=== PATIENT | female | born 1950 | race Caucasian/White ===

== ENCOUNTER 2019-10-09 16:36 | Emergency (ER) | payer OTHER ==
[2019-10-09 17:15] VITALS: TEMP 98; BMI 33.0
--- NOTE | 2019-10-09 17:44 | PDOC ---
History of Present Illness - General Chief Complaint: Pain Stated Complaint: ABDOMINAL PAIN - History of Present Illness Initial Comments: The pt is a 69F w/ a history of HTN who presents for evaluation of 1 day of generalized body aches, fevers, nausea, NBNB vomiting x4, VALERA, and abdominal pain. She is unsure of what started first. She reports a global VALERA that is worse today than usual but was not sudden onset. It is throbbing and non- radiating. Also reports maxillary and frontal sinus pain/pressure. She endorses a non-productive cough. Her abdominal pain is epigastric, non-radiating, waxing/ waning, cramping, and is not exacerbated or alleviated by anything she can identify. She reports her vomiting is generally 15-20min s/p eating/drinking. Endorses fevers at home. She has not tried taking anything for her symptoms. Denies diarrhea, dysuria, hematuria, or changes in sensation. 10/09/19 18:58 Past History - Past Medical History Allergies/Adverse Reactions: Allergies Allergy/AdvReac Type Severity Reaction Status Date / Time No Known Allergies Allergy Verified 10/09/19 17:04 Home Medications: Ambulatory Orders Albuterol 0.083% Nebulizer Neeta [Ventolin 0.083%] 1 neb NEB Q4H PRN 10/09/19 Famotidine [Pepcid] 40 mg PO DAILY 10/09/19 Losartan Potassium 25 mg PO DAILY 10/09/19 Anemia: No Asthma: No Cancer: No Cardiac Disorders: (w/u in progress) CVA: No COPD: No CHF: No Dementia: No Diabetes: (borderline) GI Disorders: (GERD) Disorders: No HTN: Yes Hypercholesterolemia: No Liver Disease: No Seizures: No Thyroid Disease: No - Surgical History Abdominal Surgery: Yes (LEFT OVARIE REMOVED) Appendectomy: No Cardiac Surgery: No Cholecystectomy: No Lung Surgery: No Neurologic Surgery: No Orthopedic Surgery: No - Immunization History Immunization Up to Date: Yes - Psycho Social/Smoking Cessation Hx Smoking History: Never smoked Have you smoked in the past 12 months: No Hx Alcohol Use: No Drug/Substance Use Hx: No Substance Use Type: None Review of Systems - Review of Systems Able to Perform ROS?: Yes Comments:: GENERAL/CONSTITUTIONAL: +fevers HEAD, EYES, EARS, NOSE AND THROAT: No change in vision. No change in hearing. + sore throat CARDIOVASCULAR: No chest pain RESPIRATORY: +non-productive cough GASTROINTESTINAL: +N/V; Denies diarrhea GENITOURINARY: No dysuria, frequency, or change in urination MUSCULOSKELETAL: No joint or muscle swelling or pain. No neck or back pain SKIN: No rash NEUROLOGIC: No vertigo, loss of consciousness, or change in strength/sensation ENDOCRINE: No increased thirst. No abnormal weight change HEMATOLOGIC/LYMPHATIC: No anemia, easy bleeding, or history of blood clots ALLERGIC/IMMUNOLOGIC: No hives or skin allergy 10/09/19 17:44 Is the patient limited Telugu proficient: No *Physical Exam - Vital Signs Last Vital Signs Temp Pulse Resp BP Pulse Ox 98 F 100 H 18 140/81 99 10/09/19 16:55 10/09/19 16:55 10/09/19 16:55 10/09/19 16:55 10/09/19 16:55 - Physical Exam GENERAL: Awake, alert, and oriented to person/place/time, in no acute distress HEAD: No signs of trauma, normocephalic, atraumatic EYES: PERRLA, EOMI, sclera anicteric, conjunctiva clear ENT: Hearing grossly normal, nares patent, oropharynx clear without exudates. Moist mucosa LUNGS: No distress, speaks in full sentences, clear to auscultation bilaterally HEART: Tachycardic rate and regular rhythm, normal S1 and S2, no murmurs appreciated, peripheral pulses normal and equal bilaterally ABDOMEN: Soft, mild epigastric TTP w/o rebound or guarding, normoactive bowel sounds. EXTREMITIES: Normal inspection, Normal range of motion, no edema. No clubbing or cyanosis NEUROLOGICAL: Cranial nerves II through XII grossly intact. Normal speech, normal gait, no focal sensorimotor deficits SKIN: Warm, Dry 10/09/19 17:44 ED Treatment Course - LABORATORY CBC & Chemistry Diagram: 10/09/19 18:25 10/09/19 18:25 - RADIOLOGY Radiograph Interpretation: CT/SINUS CT W/O CONTRAST Impression: Minimal to mild bilateral ethmoid sinus mucosal thickening. Minimal to mild right maxillary sinus mucosal thickening. CT/HEAD CT WITHOUT CONTRAST Impression: No CT evidence of acute intracranial pathology. 10/09/19 21:34 Medical Decision Making - Medical Decision Making The pt is a 69F w/ a history of HTN who presents for evaluation of 1 day of generalized body aches, fevers, nausea, NBNB vomiting x4, VALERA, and abdominal pain. ED Course Labs sent ECG Ofirmev, IVF, Pepcid, Zofran for symptomatic relief ECG w/ NSR; HR 98; left axis deviation; left anterior fascicular block; no ZAHIDA; abn ecg 10/09/19 17:47 CT head to evaluate for bleed given severity of VALERA with associated vomiting CT A&P given persistent abd pain 10/09/19 19:29 CT A&P w/o acute pathology Pt denies nausea at this time Will PO challenge and reassess 10/09/19 22:32 Pt tolerating PO Plan for D/C w/ PCP f/u Discharge instructions and return precautions given Patient in agreement and verbalized understanding Dispo: Home 10/09/19 22:42 Discharge - Discharge Information Problems reviewed: Yes Clinical Impression/Diagnosis: Viral syndrome Abdominal pain Qualifiers: Abdominal location: unspecified location Qualified Code(s): R10.9 - Unspecified abdominal pain Headache Qualifiers: Headache type: unspecified Headache chronicity pattern: unspecified pattern Intractability: not intractable Qualified Code(s): R51 - Headache Condition: Stable - Admission No - Follow up/Referral Referrals: Estevan Shukla MD [Primary Care Provider] - [facility] [place] [place] [Provider Group] - Patient Discharge Instructions Patient Printed Discharge Instructions: DI for Viral Syndrome, Nausea and Vomiting-Adult Additional Instructions: You were seen in the Emergency Department for evaluation and your labs and imaging were unremarkable. Your symptoms are likely due to a virus. Bananas, Apples, Rice, and [place] (BRAT) diets may be beneficial to alleviating your symptoms. Avoid heavily flavored foods and spicy foods. Start with water/gatorade sips and advance as tolerated. If you try to incorporate solids and vomit, go back to liquids and try advancing slowly again over several hours. For fever/aches you may take Tylenol 650mg every 6 hours as needed. Return to the Emergency Department if you develop fevers/chills, chest pain, trouble breathing, inability to tolerate fluids, blood in your stool/vomit, worsening pain, worsening symptoms, or any new/concerning symptoms. - Post Discharge Activity
[2019-10-09] MEDS ORDERED: FAMOTIDINE 20 MG/50 ML IVPB 20 MG/50 ML MG IVPB ONE ×2 (18:03→18:23)
[2019-10-09] MEDS ORDERED: ONDANSETRON 4 MG/2 ML VIAL IVPUSH ONE (18:03)
[2019-10-09] MEDS ORDERED: SODIUM CHLORIDE 0.9% 500 ML INFUS.BAG IV ONE (18:03)
[2019-10-09] MEDS ORDERED: ACETAMINOPHEN 1000 MG/100 ML VIAL (NON FORMULARY) IVPB ONE (18:03)
[2019-10-09] MEDS ORDERED: ONDANSETRON 4 MG/2 ML VIAL ONE (18:23)
[2019-10-09] MEDS ORDERED: ACETAMINOPHEN INJECTION 100 ML IVPB ONE (18:23)
--- NOTE | 2019-10-09 18:46 | PDOC ---
Documentation entered by Kecia Samano SCRIBE, acting as scribe for Juvencio Roa MD. Juvencio Roa MD: This documentation has been prepared by the Jazmyne spencer Xhesika, SCRIBE, under my direction and personally reviewed by me in its entirety. I confirm that the documentation accurately reflects all work, treatment, procedures, and medical decision making performed by me. Attending Attestation - Resident Resident Name: Richie Romero - ED Attending Attestation I have performed the following: I have examined & evaluated the patient, The case was reviewed & discussed with the resident, I agree w/resident's findings & plan, Exceptions are as noted - HPI HPI: 10/09/19 18:31 The patient is a 69 y/o female with a PMH of Gerd, DM, and HTN who presents to the ED with 1 day of myalgia, headache, ear pain and intermittent fevers. The patient states she has been endorsing multiple episodes of vomiting throughout the day after every meal or drink. The patient denies chest pain, shortness of breath, and dizziness. Denies cough , nausea, and constipation. Denies dysuria, frequency, urgency and hematuria. Allergy: NKDA - Physicial Exam PE: 10/09/19 18:33 Vitals: Triage Vital signs reviewed General Appearance: no acute distress, well nourished well developed, Neck: Supple;No Nuchal rigidity Chest Wall: Nontender Cardiac: Regular rate and rhythm, no murmurs, no rubs, no gallops, Lungs: Clear to auscultation bilateral, good air movement bilaterally, Abdomen: +Epigastric discomfort. Soft, nondistended, normal bowel sounds Extremities: Full range of motion to all extremities, no cyanosis, clubbing, or edema Skin: Warm and dry, no rashes or lesions, no petechiae Psych: normal mood, normal affect - Medical Decision Making 10/09/19 19:14 History examination with influenza-like illness Patient with mild epigastric pain fever chills body aches nausea vomiting We will check labs hydrate observe and reassess Dr. Lares to follow up labs and reevaluate patient
[2019-10-09 19:02] LABS: BASO % 0.2 % (0-2.0); EOS % 0.1 % (0-4.5); HEMATOCRIT 45.4 % (32.4-45.2); HEMOGLOBIN 15.2 GM/dL (10.7-15.3); LYMPH % 10.2 % (8-40); MCH 29.1 pg (25.7-33.7); MCHC 33.4 g/dl (32.0-36.0); MEAN CELL VOLUME 87.1 fl (80-96); MEAN PLT VOLUME 8.9 fl (7.5-11.1); MONO % 4.7 % (3.8-10.2); NEUT % 84.8 % (42.8-82.8); PLATELET COUNT 225 K/MM3 (134-434); RBC 5.22 M/mm3 (3.60-5.2); RDW 14.1 % (11.6-15.6); WHITE BLOOD COUNT 8.8 K/mm3 (4.0-10.0)
[2019-10-09 19:18] LABS: ALBUMIN 3.9 g/dl (3.4-5.0); ALK PHOS 89 U/L (45-117); ANION GAP 8 MMOL/L (8-16); BLOOD UREA NITROGEN 12.4 mg/dL (7-18); CALCIUM 8.8 mg/dL (8.5-10.1); CHLORIDE 104 mmol/L (98-107); CO2 27 mmol/L (21-32); CREATININE 0.7 mg/dL (0.55-1.3); GLUCOSE,RANDOM 107 mg/dL (74-106); POTASSIUM 3.7 mmol/L (3.5-5.1); SGOT/AST 20 U/L (15-37); SGPT/ALT 39 U/L (13-61); SODIUM 139 mmol/L (136-145); TOT PROT 7.3 g/dl (6.4-8.2)
[2019-10-09 23:09] VITALS: BP 135/76; PULSE 88
--- NOTE | 2019-10-10 10:43 | EKG ---
Test Reason : Blood Pressure : / mmHG Vent. Rate : 098 BPM Atrial Rate : 098 BPM P-R Int : 148 ms QRS Dur : 064 ms QT Int : 358 ms P-R-T Axes : 058 -46 044 degrees QTc Int : 457 ms NORMAL SINUS RHYTHM POSSIBLE LEFT ATRIAL ENLARGEMENT LEFT ANTERIOR FASCICULAR BLOCK INFERIOR INFARCT , AGE UNDETERMINED CANNOT RULE OUT ANTERIOR INFARCT , AGE UNDETERMINED ABNORMAL ECG NO PREVIOUS ECGS AVAILABLE Confirmed by Vipul Caldwell MD ([id number]) on 10/10/2019 10:43:14 AM Referred By: Confirmed By:Vipul Caldwell MD
== END 2019-10-09 23:10 | disposition home or self-care (01) ==
LOC: JER 16:36
PROC: 3E033GC Introduction of Other Therapeutic Substance into Peripheral Vein, Percutaneous Approach (ICD-10-PCS; principal; 2019-10-09)
PROC: 3E033NZ Introduction of Analgesics, Hypnotics, Sedatives into Peripheral Vein, Percutaneous Approach (ICD-10-PCS; 2019-10-09)
PROC: 3E033GC Introduction of Other Therapeutic Substance into Peripheral Vein, Percutaneous Approach (ICD-10-PCS; 2019-10-09)
DX: B34.9 Viral infection, unspecified (principal); I10 Essential (primary) hypertension
CPT/HCPCS: 36415; 70450-TC; 70486-TC; 71045-TC-FY; 74177-TC; 80053; 84484; 85025; 87804; 93005; 93010; 96365; 96375; 99285-25; J0131; Q9967

== ENCOUNTER 2019-10-23 10:00 | Day surgery (SDC) | payer OTHER ==
[2019-10-22 17:04] VITALS: BMI 32.8
[2019-10-23 12:00] VITALS: TEMP 97.9
[2019-10-23 12:29] VITALS: BP 156/85; PULSE 68
--- NOTE | 2019-10-24 17:00 | PATH ---
Surgical Pathology Report Patient Name: [facility]RIAN [facility]. Rec. #: [id number] /Age/Gender: 1950 (Age: 69) / F Account: [id number] Location: U-ENDOSCOPY Taken: 10/23/2019 Received: 10/23/2019 Reported: 10/24/2019 Physicians: Timbo Matthews D.O. Specimen(s) Received A: ANTRAL ERYTHEMA B: GASTRIC POLYPS C: ANGULARIS AND BODY Clinical History Abnormal CT scan Postoperative diagnosis: Gastric polyps, gastritis Final Diagnosis A. STOMACH, ANTRAL ERYTHEMA, BIOPSY: GASTRIC ANTRAL MUCOSA WITH MILD CHRONIC ACTIVE GASTRITIS AND VASCULAR CONGESTION. IMMUNOHISTOCHEMICAL STAIN FOR H. PYLORI IS NEGATIVE. B. GASTRIC POLYPS, BIOPSY: FUNDIC GLAND POLYP(S). IMMUNOHISTOCHEMICAL STAIN FOR H. PYLORI IS NEGATIVE. C. STOMACH, ANGULARIS AND BODY, BIOPSY: GASTRIC BODY MUCOSA WITH MILD CHRONIC GASTRITIS. IMMUNOHISTOCHEMICAL STAIN FOR H. PYLORI IS NEGATIVE. Positive and negative controls (internal if applicable) show appropriate results. Electronically Signed Deneen Eduardo M.D. Gross Description A. Received in formalin, labeled "biopsy antral erythema" are 6 cook, irregular portions of soft tissue ranging from 0.1-0.5 cm. in greatest dimension. The specimens are submitted in toto in one cassette. B. Received in formalin, labeled "biopsy gastric polyps" are 8 cook, irregular portions of soft tissue ranging from 0.2-0.4 cm. in greatest dimension. The specimens are submitted in toto in one cassette. C. Received in formalin, labeled "biopsy angularis and body" is a cook, irregular portion of soft tissue measuring 0.3 cm. in greatest dimension. The specimen is submitted in toto in one cassette. DL/10/23/2019 saudi/10/23/2019
== END 2019-10-23 12:45 | disposition home or self-care (01) ==
LOC: JASU-ENDO 10:00
PROVIDERS: ATTEND Internal Medicine Gastroenterology
PROC: 0DB68ZX Excision of Stomach, Via Natural or Artificial Opening Endoscopic, Diagnostic (ICD-10-PCS; principal; 2019-10-23 11:00)
DX: K31.7 Polyp of stomach and duodenum (principal); K29.50 Unspecified chronic gastritis without bleeding
CPT/HCPCS: 88305-TC; 88342-TC

== ENCOUNTER 2021-11-24 04:33 | Day surgery (SDC) | payer OTHER ==
[2021-11-20 16:16] VITALS: BMI 32.1
[~2021-11-24 04:33] MED LIST: BUPIVACAINE HCL/PF 0.5% (5MG/ML) 10 ML VIAL IJ ONE; IOHEXOL 180 MG/1 ML ML IJ ONE
[2021-11-24] MEDS ORDERED: DEXAMETHASONE SOD PHOSPHATE 10 MG/1 ML VIAL ONE (11:28)
[2021-11-24] MEDS ORDERED: BUPIVACAINE HCL/PF 0.5% (5MG/ML) 10 ML VIAL ONE (11:28)
[2021-11-24] MEDS ORDERED: BUPIVACAINE HCL/PF 0.75% 10 ML VIAL ONE (11:28)
[2021-11-24] MEDS ORDERED: IOHEXOL 180 MG/1 ML ML IJ ONE (12:41)
[2021-11-24] MEDS ORDERED: BUPIVACAINE HCL/PF 0.5% (5MG/ML) 10 ML VIAL IJ ONE (13:00)
[2021-11-24 13:33] VITALS: BP 141/90; PULSE 64; TEMP 98
== END 2021-11-24 13:50 | disposition home or self-care (01) ==
LOC: JASU-SURG 04:33
PROVIDERS: ATTEND Pain Medicine Pain Medicine
PROC: 3E0T33Z Introduction of Anti-inflammatory into Peripheral Nerves and Plexi, Percutaneous Approach (ICD-10-PCS; 2021-11-24)
PROC: 3E0T3BZ Introduction of Anesthetic Agent into Peripheral Nerves and Plexi, Percutaneous Approach (ICD-10-PCS; principal; 2021-11-24 11:30)
DX: M47.812 Spondylosis without myelopathy or radiculopathy, cervical region (principal)
CPT/HCPCS: 76000-TC-FY; J1100

== ENCOUNTER 2021-12-22 04:29 | Day surgery (SDC) | payer OTHER ==
[2021-12-21 11:15] VITALS: BMI 32.1
[2021-12-22] MEDS ORDERED: LIDOCAINE HCL/PF 1% SDV 5ML VIAL ONE (07:09)
[2021-12-22] MEDS ORDERED: BUPIVACAINE HCL/PF 0.5% (5MG/ML) 10 ML VIAL ONE (07:09)
[2021-12-22] MEDS ORDERED: BUPIVACAINE HCL/PF 0.5% (5MG/ML) 10 ML VIAL IJ ONE (09:40)
[2021-12-22] MEDS ORDERED: IOHEXOL 180 MG/1 ML ML IJ ONE (09:40)
[2021-12-22 12:01] VITALS: BP 145/78; PULSE 60; TEMP 97.8
== END 2021-12-22 10:17 | disposition home or self-care (01) ==
LOC: JASU-SURG 04:29
PROVIDERS: ATTEND Pain Medicine Pain Medicine
PROC: BR14YZZ Fluoroscopy of Cervical Facet Joint(s) using Other Contrast (ICD-10-PCS; 2021-12-22)
PROC: 3E0T3BZ Introduction of Anesthetic Agent into Peripheral Nerves and Plexi, Percutaneous Approach (ICD-10-PCS; principal; 2021-12-22 09:30)
DX: M47.812 Spondylosis without myelopathy or radiculopathy, cervical region (principal); I10 Essential (primary) hypertension
CPT/HCPCS: 76000-TC-FY

== ENCOUNTER 2022-01-26 04:37 | Day surgery (SDC) | payer OTHER ==
[2022-01-21 16:28] VITALS: BMI 32.1
[2022-01-26] MEDS ORDERED: BUPIVACAINE HCL/PF 0.25% (2.5MG/ML) 10 ML VIAL ONE (07:14)
[2022-01-26] MEDS ORDERED: LIDOCAINE HCL/PF 1% SDV 5ML VIAL ONE (07:15)
[2022-01-26] MEDS ORDERED: BUPIVACAINE HCL/PF 0.75% 10 ML VIAL ONE (07:15)
[2022-01-26 08:40] VITALS: TEMP 97.5
[2022-01-26] MEDS ORDERED: LIDOCAINE HCL/PF 2% SDV 5ML VIAL ONE (10:38)
[2022-01-26] MEDS ORDERED: DEXAMETHASONE SOD PHOSPHATE 10 MG/1 ML VIAL IM ONE (10:39)
[2022-01-26] MEDS ORDERED: LIDOCAINE 1% P/F 10 MG/ML VIAL INF ONE (10:40)
[2022-01-26] MEDS ORDERED: BUPIVACAINE HCL/PF 0.25% (2.5MG/ML) 10 ML VIAL IJ ONE (10:41)
[2022-01-26] MEDS ORDERED: LIDOCAINE HCL/PF 2% SDV 5ML VIAL INF ONE (10:42)
[2022-01-26 11:31] VITALS: BP 143/69; PULSE 68
== END 2022-01-26 11:35 | disposition home or self-care (01) ==
LOC: JASU-SURG 04:37
PROVIDERS: ATTEND Pain Medicine Pain Medicine
PROC: 3E0T3TZ Introduction of Destructive Agent into Peripheral Nerves and Plexi, Percutaneous Approach (ICD-10-PCS; principal; 2022-01-26 11:00)
PROC: BR14YZZ Fluoroscopy of Cervical Facet Joint(s) using Other Contrast (ICD-10-PCS; 2022-01-26 11:00)
DX: M47.812 Spondylosis without myelopathy or radiculopathy, cervical region (principal); I10 Essential (primary) hypertension
CPT/HCPCS: 76000-TC-FY; J1100

== ENCOUNTER 2022-03-02 04:43 | Day surgery (SDC) | payer OTHER ==
[2022-02-24 17:36] VITALS: BMI 32.1
[2022-03-02] MEDS ORDERED: LIDOCAINE HCL/PF 1% SDV 5ML VIAL ONE (07:07)
[2022-03-02] MEDS ORDERED: BUPIVACAINE HCL/PF 0.75% 10 ML VIAL ONE (07:07)
[2022-03-02] MEDS ORDERED: LIDOCAINE HCL/PF 2% SDV 5ML VIAL ONE ×2 (07:14→09:05)
[2022-03-02] MEDS ORDERED: SODIUM CHLORIDE 0.9% P/F 10 ML VIAL IJ ONE (07:14)
[2022-03-02] MEDS ORDERED: LIDOCAINE HCL/PF 2% SDV 5ML VIAL PNB ONE (09:17)
[2022-03-02] MEDS ORDERED: LIDOCAINE 1% P/F 10 MG/ML VIAL PNB ONE (09:18)
[2022-03-02] MEDS ORDERED: DEXAMETHASONE SOD PHOSPHATE 10 MG/1 ML VIAL IVPUSH ONE (09:18)
[2022-03-02] MEDS ORDERED: BUPIVACAINE HCL/PF 0.25% (2.5MG/ML) 10 ML VIAL IJ ONE (09:19)
[2022-03-02 10:16] VITALS: BP 149/78; PULSE 73; TEMP 98
== END 2022-03-02 10:15 | disposition home or self-care (01) ==
LOC: JASU-SURG 04:43
PROVIDERS: ATTEND Pain Medicine Pain Medicine
PROC: 3E0T3TZ Introduction of Destructive Agent into Peripheral Nerves and Plexi, Percutaneous Approach (ICD-10-PCS; principal; 2022-03-02 08:45)
DX: M47.812 Spondylosis without myelopathy or radiculopathy, cervical region (principal)
CPT/HCPCS: 76000-TC-FY; J1100

== ENCOUNTER 2022-06-22 04:26 | Day surgery (SDC) | payer OTHER ==
[2022-06-21 10:08] VITALS: BMI 33.6
[2022-06-22 07:18] VITALS: RESP 20
[2022-06-22] MEDS ORDERED: LIDOCAINE HCL/PF 1% SDV 5ML VIAL ONE (07:36)
[2022-06-22] MEDS ORDERED: BUPIVACAINE HCL/PF 0.75% 10 ML VIAL ONE (07:36)
[2022-06-22] MEDS ORDERED: LIDOCAINE HCL 1% PRESERVATIVE FREE - 30ML VIAL IJ ONE (08:03)
[2022-06-22] MEDS ORDERED: BUPIVACAINE HCL/PF 0.75% 10 ML VIAL NR ONE (08:08)
[2022-06-22 09:49] VITALS: BP 130/70; PULSE 60; TEMP 98
== END 2022-06-22 09:00 | disposition home or self-care (01) ==
LOC: JASU-SURG 04:26
PROVIDERS: ATTEND Pain Medicine Pain Medicine
PROC: BR16YZZ Fluoroscopy of Lumbar Facet Joint(s) using Other Contrast (ICD-10-PCS; 2022-06-22)
PROC: 3E0T3BZ Introduction of Anesthetic Agent into Peripheral Nerves and Plexi, Percutaneous Approach (ICD-10-PCS; principal; 2022-06-22 08:30)
DX: M47.816 Spondylosis without myelopathy or radiculopathy, lumbar region (principal); I10 Essential (primary) hypertension
CPT/HCPCS: 76000-TC-FY

== ENCOUNTER 2022-11-05 04:13 | Day surgery (SDC) | payer OTHER ==
[2022-11-03 10:06] VITALS: BMI 32.1
[~2022-11-05 04:13] MED LIST changes: -BUPIVACAINE HCL/PF 0.5% (5MG/ML) 10 ML VIAL IJ ONE; +BUPIVACAINE HCL/PF 0.75% 10 ML VIAL PNB ONE; +LIDOCAINE 1% P/F 10 MG/ML VIAL PNB ONE
[2022-11-05] MEDS ORDERED: BUPIVACAINE HCL/PF 0.75% 10 ML VIAL ONE (07:28)
[2022-11-05] MEDS ORDERED: LIDOCAINE HCL/PF 1% SDV 5ML VIAL ONE (07:28)
[2022-11-05 11:19] VITALS: RESP 18; TEMP 97.8
[2022-11-05] MEDS ORDERED: BUPIVACAINE HCL/PF 0.75% 10 ML VIAL PNB ONE (11:58)
[2022-11-05] MEDS ORDERED: LIDOCAINE 1% P/F 10 MG/ML VIAL PNB ONE (12:03)
[2022-11-05 13:36] VITALS: BP 132/69; PULSE 62
== END 2022-11-05 12:25 | disposition home or self-care (01) ==
LOC: JASU-SURG 04:13
PROVIDERS: ATTEND Pain Medicine Pain Medicine
PROC: BR16YZZ Fluoroscopy of Lumbar Facet Joint(s) using Other Contrast (ICD-10-PCS; 2022-11-05)
PROC: 3E0T3BZ Introduction of Anesthetic Agent into Peripheral Nerves and Plexi, Percutaneous Approach (ICD-10-PCS; principal; 2022-11-05 12:30)
DX: M47.816 Spondylosis without myelopathy or radiculopathy, lumbar region (principal); I10 Essential (primary) hypertension
CPT/HCPCS: 76000-TC-FY

== ENCOUNTER 2024-08-17 03:51 | Day surgery (SDC) | payer OTHER ==
[2024-08-16 14:48] VITALS: BMI 34.2
[2024-08-17 11:35] VITALS: RESP 18
[2024-08-17] MEDS: LIDOCAINE HCL 1% PRESERVATIVE FREE - 30ML VIAL IJ ONE ×2 (13:06)
[2024-08-17] MEDS: IOHEXOL 180 MG/1 ML ML IJ ONE ×3 (13:06→13:09)
[2024-08-17] MEDS: DEXAMETHASONE SOD PHOSPHATE 10 MG/1 ML VIAL IVPUSH ONE ×2 (13:07)
[2024-08-17] MEDS ORDERED: ACETAMINOPHEN 500 MG TABLET (FP) ONE (14:00)
[2024-08-17] MEDS: ACETAMINOPHEN 500 MG TABLET (FP) PO PRN (14:00)
[2024-08-17 16:59] VITALS: BP 144/72; PULSE 68; TEMP 97.8
== END 2024-08-17 14:07 | disposition home or self-care (01) ==
LOC: JASU-SURG 03:51
PROVIDERS: ATTEND Pain Medicine Pain Medicine
PROC: 3E0R3BZ Introduction of Anesthetic Agent into Spinal Canal, Percutaneous Approach (ICD-10-PCS; 2024-08-17)
PROC: 00HU33Z Insertion of Infusion Device into Spinal Canal, Percutaneous Approach (ICD-10-PCS; 2024-08-17)
PROC: 3E0R33Z Introduction of Anti-inflammatory into Spinal Canal, Percutaneous Approach (ICD-10-PCS; 2024-08-17)
PROC: 3E0R3BZ Introduction of Anesthetic Agent into Spinal Canal, Percutaneous Approach (ICD-10-PCS; 2024-08-17)
PROC: 00HU33Z Insertion of Infusion Device into Spinal Canal, Percutaneous Approach (ICD-10-PCS; 2024-08-17)
PROC: 3E0R33Z Introduction of Anti-inflammatory into Spinal Canal, Percutaneous Approach (ICD-10-PCS; principal; 2024-08-17 13:00)
DX: M54.16 Radiculopathy, lumbar region (principal)
CPT/HCPCS: 76000-TC-FY; J1100

== ENCOUNTER 2024-11-08 06:43 | Day surgery (SDC) | payer OTHER ==
[2024-11-05 17:51] VITALS: BMI 34.2
[2024-11-08] MEDS ORDERED: BUPIVACAINE HCL/PF 0.75% 10 ML VIAL ONE (07:47)
[2024-11-08] MEDS ORDERED: ACETAMINOPHEN 500 MG TABLET (FP) PO PRN (09:27)
[2024-11-08 09:40] VITALS: RESP 18
[2024-11-08] MEDS: LIDOCAINE HCL 1% PRESERVATIVE FREE - 30ML VIAL IJ ONE ×2 (11:33)
[2024-11-08 13:02] VITALS: BP 138/72; PULSE 70; TEMP 97.8
== END 2024-11-08 12:48 | disposition home or self-care (01) ==
LOC: JASU-SURG 06:43
PROVIDERS: ATTEND Pain Medicine Pain Medicine
PROC: 01HY3MZ Insertion of Neurostimulator Lead into Peripheral Nerve, Percutaneous Approach (ICD-10-PCS; principal; 2024-11-08 11:00)
DX: G89.4 Chronic pain syndrome (principal); M79.604 Pain in right leg
CPT/HCPCS: 64555; C1778